=== PATIENT | male | born 1965 | race Caucasian/White ===

== ENCOUNTER 2025-04-04 10:45 | Emergency (ER) | payer SELFPAY ==
[~2025-04-04] VITALS: Ht 177.8 cm; Wt 63.0 kg
[2025-04-04 10:51] VITALS: O2SAT 99
[2025-04-04 11:33] LABS: BASOPHILS % 0.8 % (0.0-2.0); EOSINOPHILS % 3.0 % (0.0-5.0); HEMATOCRIT. 29.2 % (42.0-52.0); HEMOGLOBIN. 9.4 g/dL (14.0-18.0); LYMPHOCYTES % 19.4 % (20.0-50.0); MEAN PLATELET VOLUME 7.3 fl (7.4-10.4); MONOCYTES % 10.7 % (2.0-8.0); NEUTROPHILS % 66.1 % (40.0-76.0); PLATELET 375 x1000/uL (130-400); RED BLOOD CELL COUNT 3.79 mill/uL (4.7-6.1); RED CELL DISTRIBUTION WIDTH 17.5 % (11.6-14.6)
[2025-04-04 11:45] LABS: CREATININE 1.0 mg/dL (0.6-1.3); UREA NITROGEN BLOOD 17 mg/dL (9-23)
[2025-04-04 11:46] LABS: TROPONIN I HIGH SENSITIVITY 9 ng/L (3.0-53)
[2025-04-04] MEDS: FUROSEMIDE 40MG/4ML VIAL IVP ONE (13:02)
[2025-04-04 18:25] VITALS: BP 141/84; PULSE 78; RESP 18; TEMP 36.9; O2SAT 99
== END 2025-04-04 18:35 ==
LOC: ER 10:45
DX: M79.89 Other specified soft tissue disorders (principal); I11.0 Hypertensive heart disease with heart failure; I50.9 Heart failure, unspecified; Z88.0 Allergy status to penicillin
CPT/HCPCS: 80048; 83880; 85025; 84484; 36415; 71045; 93005; 96374; 99285; J1938; Z7610 ×5; A4606